=== PATIENT | male | born 1955 | race Asian ===

== ENCOUNTER 2023-11-28 04:27 | Day surgery (SDC) | payer MEDICARE, OTHER ==
[2023-11-28] MEDS ORDERED: INSULIN (NOVOLOG) ASPART 100 UNITS/ML 10ML VIAL SQ ONE (07:15)
[2023-11-28] MEDS ORDERED: PROPOFOL 20 ML ONE (07:59)
[2023-11-28] MEDS ORDERED: MIDAZOLAM HCL 2 MG/2 ML SINGLE DOSE VIAL ONE (07:59)
[2023-11-28] MEDS ORDERED: BOTULINUM TOXIN A 100 UNITS VIAL NR ONE (08:00)
[2023-11-28] MEDS ORDERED: ceFAZolin SODIUM 1 GM VIAL ONE ×2 (08:04→08:05)
[2023-11-28] MEDS: ceFAZolin SODIUM 1 GM VIAL IVPB ONE (08:05)
[2023-11-28] MEDS ORDERED: ONDANSETRON 4 MG/2 ML VIAL IVPUSH PRN (08:26)
[2023-11-28] MEDS ORDERED: oxyCODONE HCL 5 MG TABLET PO PRN (08:26)
[2023-11-28] MEDS ORDERED: LACTATED RINGERS SOLUTION 1,000 ML IV SCH (08:30)
[2023-11-28 08:43] VITALS: RESP 18
[2023-11-28] MEDS ORDERED: ACETAMINOPHEN INJECTION 100 ML IVPB ONE (10:30)
[2023-11-28] MEDS: ACETAMINOPHEN 1000 MG/100 ML BAG IVPB PRN (10:34)
[2023-11-28 11:07] VITALS: BP 125/66; PULSE 63; TEMP 97.5
== END 2023-11-28 11:45 | disposition home or self-care (01) ==
LOC: JASU-SURG 04:27
PROVIDERS: ATTEND Urology
PROC: 3E0K8GC Introduction of Other Therapeutic Substance into Genitourinary Tract, Via Natural or Artificial Opening Endoscopic (ICD-10-PCS; principal; 2023-11-28 08:00)
PROC: 0TJB8ZZ Inspection of Bladder, Via Natural or Artificial Opening Endoscopic (ICD-10-PCS; 2023-11-28 08:00)
DX: N32.81 Overactive bladder (principal)
CPT/HCPCS: 82962; 94760; J0131